=== PATIENT | male | born 1975 | race African-American/Black ===

== ENCOUNTER 2019-10-06 16:57 | Emergency (ER) | payer OTHER ==
[~2019-10-06] VITALS: Ht 182.9 cm; Wt 88.5 kg
--- NOTE | 2019-10-06 17:55 | NUR ---
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
[2019-10-06] MEDS ORDERED: METO25TA35 PO (18:08)
[2019-10-06] MEDS ORDERED: TRAZ-137 PO (18:08)
[2019-10-06] MEDS ORDERED: CITA10TA8 PO (18:08)
[2019-10-06] MEDS ORDERED: ALPR0.5T7 PO (18:08)
--- NOTE | 2019-10-06 18:10 | NUR ---
PT REPORT FROM ANYI DING. PER TOÑA PT REPORTED TAKING [employer] TELEVISION PARTS TESTER. PT CARE TO BE ASSUMED.
--- NOTE | 2019-10-06 18:21 | NUR ---
DR DAVIS BS FOR EXAM.
[2019-10-06 19:07] VITALS: BP 182/107
--- NOTE | 2019-10-06 19:12 | NUR ---
Discussed with pt discharge information and elevated BP per pt he takes BP medication nightly and will take when he gets home, primary RN Patty dove. Pt verbalized understanding of discharge info, ambulated to dc desk.
== END 2019-10-06 19:16 | disposition home or self-care (01) ==
LOC: ED 18:00
DX: S09.90XA Unspecified injury of head, initial encounter (principal); S40.812A Abrasion of left upper arm, initial encounter; I10 Essential (primary) hypertension; F17.200 Nicotine dependence, unspecified, uncomplicated; V43.52XA Car driver injured in collision with other type car in traffic accident, initial encounter; Y93.89 Activity, other specified; Y92.488 Other paved roadways as the place of occurrence of the external cause; Y99.8 Other external cause status
CPT/HCPCS: 70450; 99284